=== PATIENT | male | born 1955 | race Caucasian/White ===

== ENCOUNTER 2018-08-18 11:16 | Emergency (ER) | payer OTHER ==
[~2018-08-18] VITALS: Ht 198.1 cm; Wt 132.0 kg
[2018-08-18 11:47] LABS: BASOPHILS # (AUTO) 0.03 x10^3/uL (0-0.1); BASOPHILS % (AUTO) 0 % (0-1); EOSINOPHILS # (AUTO) 0.12 x10^3/uL (0-0.4); EOSINOPHILS % (AUTO) 2 % (1-7); LYMPHOCYTES # (AUTO) 1.98 x10^3/uL (1-3.4); LYMPHOCYTES % (AUTO) 30 % (22-44); MD NO; MEAN CORPUSCULAR HEMOGLOBIN 33.3 pg (27.5-34.5); MEAN CORPUSCULAR HGB CONC 34.3 g/dL (33.2-36.2); MEAN CORPUSCULAR VOLUME 97.1 fL (81-97); MEAN PLATELET VOLUME 7.7 fL (7.4-10.4); MONOCYTES # (AUTO) 0.44 x10^3/uL (0.2-0.8); MONOCYTES % (AUTO) 7 % (2-9); NEUTROPHILS # (AUTO) 4.06 x10^3/uL (1.8-6.8); NEUTROPHILS % (AUTO) 61 % (42-75); PLATELET COUNT 258 x10^3/uL (130-400); RED BLOOD COUNT 4.82 x10^6/uL (4.38-5.82); RED CELL DISTRIBUTION WIDTH 13.8 % (9.4-14.8)
[2018-08-18] MEDS ORDERED: ERGO2000 PO (11:59)
[2018-08-18] MEDS ORDERED: OMEP-110 PO (11:59)
[2018-08-18] MEDS ORDERED: FELO5TAB PO (11:59)
[2018-08-18] MEDS ORDERED: LOSA100T7 PO (11:59)
[2018-08-18] MEDS ORDERED: METF500T17 PO (11:59)
[2018-08-18] MEDS ORDERED: ASPI-496 PO (11:59)
[2018-08-18] MEDS ORDERED: SIMV20TA3 PO (11:59)
[2018-08-18 12:41] LABS: CHLORIDE 106 mmol/L (98-107)
[2018-08-18 12:51] VITALS: BP 125/43
[2018-08-18 13:01] LABS: ALANINE AMINOTRANSFERASE 34 U/L (12-78); ALBUMIN 3.8 g/dL (3.4-5.0); ALKALINE PHOSPHATASE 91 U/L (45-117); ANION GAP 7 mmol/L (5-15); BILIRUBIN,TOTAL 0.9 mg/dL (0.2-1.0); CALCIUM 9.1 mg/dL (8.5-10.1); CREATININE 1.43 mg/dL (0.7-1.3); TOTAL PROTEIN 7.3 g/dL (6.4-8.2)
== END 2018-08-18 14:27 | disposition home or self-care (01) ==
LOC: ED 13:39
DX: R41.82 Altered mental status, unspecified (principal); I10 Essential (primary) hypertension; E11.9 Type 2 diabetes mellitus without complications
CPT/HCPCS: 36415; 70450; 80053; 82962; 85025; 93005; 99285